=== PATIENT | male | born 1945 | race Two or more races ===

== ENCOUNTER 2021-10-28 07:34 | Emergency (ER) | payer MEDICARE ==
[~2021-10-28] VITALS: Ht 162.6 cm; Wt 68.2 kg
[2021-10-28 07:41] VITALS: BP 132/69
[2021-10-28] MEDS ORDERED: TAMS-13 PO (07:44)
[2021-10-28] MEDS ORDERED: LEVO25TA9 PO (07:44)
[2021-10-28] MEDS ORDERED: LIDOCAINE 5% TRANSDERMAL PATCH TD ONE (08:00)
[2021-10-28] MEDS ORDERED: CYCLOBENZAPRINE HCL 10 MG TABLET PO ONE (08:00)
[2021-10-28] MEDS ORDERED: ACETAMINOPHEN 500 MG TABLET PO ONE (08:00)
[2021-10-28] MEDS ORDERED: CYCL-448 PO (08:23)
[2021-10-28] MEDS ORDERED: ACET-3385 PO (08:23)
== END 2021-10-28 08:55 | disposition home or self-care (01) ==
LOC: EMS 07:39
DX: M43.6 Torticollis (principal); E03.9 Hypothyroidism, unspecified; Z88.6 Allergy status to analgesic agent; Z79.899 Other long term (current) drug therapy
CPT/HCPCS: 99284; Z7502; Z7610